=== PATIENT | male | born 1930 | race Caucasian/White ===

== ENCOUNTER 2017-11-15 10:05 | Emergency (ER) | payer OTHER, BC ==
[~2017-11-15] VITALS: Ht 182.9 cm; Wt 73.1 kg
[2017-11-15 11:14] VITALS: BP 150/65
== END 2017-11-15 11:44 | disposition home or self-care (01) ==
LOC: EME 10:05
DX: Z04.1 Encounter for examination and observation following transport accident (principal); V43.52XA Car driver injured in collision with other type car in traffic accident, initial encounter; Y92.411 Interstate highway as the place of occurrence of the external cause; I10 Essential (primary) hypertension
CPT/HCPCS: 99281; 99284